=== PATIENT | female | born 1930 | race Caucasian/White ===

== ENCOUNTER 2016-10-27 01:31 | Observation (INO) ==
--- NOTE | 2016-10-27 02:17 | Emergency Department Note ---
Brice Toribio Mantricia, am scribing for, and in the presence of, Faustino Berman MD 02:05. Cullen Toribio Charles R, MD, personally performed the services described in this documentation, ascribed by Branden Narvaez in my presence, and it is both accurate and complete . Arrival - Arrival Chief Complaint: Arrhythmia/Palpitations Stated Complaint: AFIB ED Nursing Triage Note: C/C transfer from [facility] with Dx New Onset A-fib. Pt was given ASA 325mg, Lopressor 5mg, Zofran 4mg, Lovenox 40mg, 1L NS Mode of Arrival: Stretcher Limitations: No Limitations Source: Patient Time Seen by Provider: 10/27/16 01:43 - History of Present Illness HPI Narrative: Pt is an 86 y/o white female arriving to ED by EMS as a transfer from [facility] for further evaluation of new onset of Afib. Pt was given ASA, Lopressor, Zofran, Lovenox, and a liter of fluid while at [facility]. At time of exam, pt denies any chest pain but reports that she did have some chest pain earlier today. Pt's deck hand is Dr. Harden and she is not sure what cardiac problem she has that prompted her to be seen by Dr. Harden. No other complaints were reported to ED. Onset (ago): hour(s) Consistency: constant Severity: mild Allergies/Adverse Reactions: Allergies Allergy/AdvReac Type Severity Reaction Status Date / Time No Known Allergies Allergy Unverified 10/27/16 01:47 Review of System - Review of System 12 point system: reviewed and no additional remarkable complaints except as stated - Review of System Constitutional: Absent: chills, diaphoresis, fever Eyes: Absent: pain Respiratory: Absent: cough Cardiovascular: Present: chest pain, palpitations. Absent: dyspnea on exertion Gastrointestinal: Absent: abdominal pain, nausea, vomiting Medical,Surgical,& Family Hx - Medical History Cardio: History of: Hypertension, Cardiovascular Problems (Bradycardia) Psychological: History of: Depression Neurology: History of: Cerebrovascular Accident Endocrine: History of: Dyslipidemia, Thyroid Disorder (Hypothyroid) Musculoskeletal: History of: Musculoskeletal Problems (Osteoarthritis) - Surgical History Reproductive Surgeries: Surgical HX of;: Hysterectomy - Social History Smoking Status: Former smoker Frequency of Alcohol Use: None Type of Drug Use: None Exam Vital Signs: Vital Signs Temperature 97.9 F 10/27/16 01:32 Pulse Rate 59 L 10/27/16 01:32 Respiratory Rate 16 10/27/16 01:45 Blood Pressure 131/84 10/27/16 01:32 O2 Sat by Pulse Oximetry 96 10/27/16 01:32 - General General appearance: alert, in no apparent distress - Head Head exam: Present: atraumatic, normocephalic, normal inspection - Eye Eye exam: Present: normal appearance, PERRL, EOMI - ENT ENT exam: Present: normal exam, normal oropharynx, mucous membranes moist, TM's normal bilaterally, normal external ear exam - Neck Neck exam: Present: normal inspection, full ROM, trachea midline. Absent: tenderness - Chest Chest inspection: Present: normal inspection, symmetric chest wall rise. Absent : tenderness - Respiratory Respiratory exam: Present: rhonchi - Cardiovascular Cardiovascular exam: Present: normal rhythm, bradycardia, normal heart sounds - Abdominal Exam Abdominal exam: Present: soft, normal bowel sounds. Absent: distention, tenderness, guarding, rebound - Extremities Exam Extremities exam: Present: full ROM, normal capillary refill, other (+1 LE edema bilat). Absent: tenderness - Back Exam Back exam: Present: normal inspection, full ROM. Absent: tenderness - Neurological Exam Neurological exam: Present: alert, oriented X3, CN II-XII intact, normal gait, reflexes normal - Psychiatric Psychiatric exam: Present: normal affect, normal mood - Skin Skin exam: Present: warm, dry, intact, normal color Course Course Narrative: On admission patient has no chest pain she is actually bradycardic in normal sinus rhythm has no complaints will place patient in the hospital observation hospitalist - Consultations Consultation #1: Hospitalist will admit patient Time: 02:16 Results - Labs Labs: All results reviewed from previous facility Disposition Clinical Impression: Palpitations, New onset a-fib, Atypical chest pain Case discussed with: patient Disposition: Still a Patient Condition: Stable Time of Disposition: 02:16
--- NOTE | 2016-10-27 02:38 | Hospitalist History & Physical ---
Assessment and Plan (1) Atypical chest pain Status: Acute (2) New onset a-fib Status: Acute (3) Palpitations Status: Acute Assessment and plan: Patient is currently in this bradycardia rhythm. At the outside facility copies of the EKG are consistent with A. fib with RVR. Patient will be admitted to telemetry we will draw serial cardiac enzymes check a fasting lipid profile at the outside facility patient received Lovenox aspirin and Lopressor. Will get cardiology to see her I do not know if the A. fib is new or old. She normally sees Dr. Lindsay Hicks. History of Present Illness Chief complaint: Chest pain History of present illness: Ms. Hunter is a 86 year old female with past medical history significant for stroke with residual left hemiparesis, coronary artery disease and reflux who is in her normal state of health until tonight. [facility] She started developing chest pain that radiated up to her neck. She denies shortness of breath and diaphoresis she was taken up to the [facility] for further evaluation. Patient found to be in A. fib rhythm with a heart rate mildly above 100. Patient received Lovenox and labetalol at that facility and currently has a rate in the 50s. Patient was transferred to our hospital for further evaluation I was consulted to admit her. Allergies Allergy/AdvReac Type Severity Reaction Status Date / Time No Known Allergies Allergy Unverified 10/27/16 01:47 Medical,Surgical,& Family Hx - Medical History Cardio: History of: Hypertension, Cardiovascular Problems (Bradycardia) Psychological: History of: Depression Neurology: History of: Cerebrovascular Accident Endocrine: History of: Dyslipidemia, Thyroid Disorder (Hypothyroid) Musculoskeletal: History of: Musculoskeletal Problems (Osteoarthritis) - Surgical History Reproductive Surgeries: Surgical HX of;: Hysterectomy - Family History Family History: Reports;: Family Heart Disease - Social History Smoking Status: Former smoker Frequency of Alcohol Use: None Type of Drug Use: None 12 point system: reviewed and no additional remarkable complaints except as stated Exam - Constitutional Vitals: Period Temp Pulse Resp BP Sys/Steinberg Pulse Ox Last 24 Hr 97.9 F-97.9 F 59-59 16-18 131-131/84-84 96 - General General appearance: alert, in no apparent distress - Head Head exam: Present: atraumatic, normocephalic, normal inspection - Eye Eye exam: Present: normal appearance, PERRL, EOMI - ENT ENT exam: Present: normal exam, normal oropharynx, mucous membranes moist, TM's normal bilaterally, normal external ear exam - Neck Neck exam: Present: normal inspection, full ROM, trachea midline. Absent: tenderness - Chest Chest inspection: Present: normal inspection, symmetric chest wall rise. Absent : tenderness - Respiratory Respiratory exam: Present: Grossly clear - Cardiovascular Cardiovascular exam: Present: normal rhythm, bradycardia, normal heart sounds - Abdominal Exam Abdominal exam: Present: soft, normal bowel sounds. Absent: distention, tenderness, guarding, rebound - Extremities Exam Extremities exam: Present: full ROM, normal capillary refill, other (+1 LE edema bilat). Patient with significant hemiparesis on the left - Back Exam Back exam: Present: normal inspection, full ROM. Absent: tenderness - Neurological Exam Neurological exam: Present: alert, oriented X3, CN II-XII intact, normal gait, reflexes normal - Psychiatric Psychiatric exam: Present: normal affect, normal mood - Skin Skin exam: Present: warm, dry, intact, normal color Results - Labs Labs: Labs from outside facility displayed white count 9.7 hemoglobin 12.7 hematocrit 38.6 platelets 478 BUN 23 calcium 10.0 creatinine 0.89 CO2 23 glucose 138 potassium 3.9 sodium 139 chloride 104 CK-MB 1.2 myoglobin 27 troponin less than 0.03
[2016-10-27] MEDS ORDERED: ONDANSETRON 4 MG/2 ML VIAL IV PRN (02:44)
[2016-10-27 05:25] LABS: Basophils % 0.4 % (0.0-0.8); Eosinophils # 0.2 10*3/uL (0.0-0.87); Eosinophils % 2.5 % (0.00-10.9); Hematocrit 32.4 VOL% (35.7-47.0); Hemoglobin 11.2 GM/DL (12.0-16.0); Immature Granulocytes % 0.3 %; Immature Granulocytes Absolute 0.02 #; Mean Corpuscular HGB Conc 34.6 GM/DL (32-36); Mean Corpuscular Hemoglobin 32 PG (27-34); Mean Corpuscular Volume 92.6 FL (87-102); Mean Platelet Volume 9.6 FL (9.6-12.0); Monocytes # 0.7 10*3/uL (0.11-0.8); Monocytes % 9.6 % (1.7-12.7); Neutrophils # 2.6 10*3/uL (1.4-7.4); Neutrophils % 34.2 % (38.7-73.9); Platelet Count 414 T/CUMM (130-400); Red Cell Distribution Width 13.5 % (9.3-17.3); White Blood Count 7.5 T/CUMM (4-12)
[2016-10-27 05:47] LABS: Albumin 3.1 G/DL (3.4-5.0); Bilirubin,Total 0.5 MG/DL (0.2-1.0); Calcium 8.6 MG/DL (8.5-10.1); Osmolality,Calculated 287.1 MOS/KG (273-304); Risk Ratio 6.76; Total Protein 6.6 G/DL (6.4-8.3); VLDL CHOLESTEROL 55.6 MG/DL
[2016-10-27 05:49] LABS: Troponin I Only 0.144 NG/ML (0.00-0.045)
[2016-10-27 06:13] LABS: Band Neutrophils 3 % (0-10); Eosinophils 2 % (0-10); Hypochromasia 2+; Lymphocytes 52 % (20-55); Platelet Estimate Increased; Segmented Neutrophils 33 % (50-85); Total Cells Counted 100
--- NOTE | 2016-10-27 07:55 | EKG Report ---
Stationary ECG Study [facility] ER Test Date: 10/27/2016 1:45:08 AM Pat Name: KATHRYN HAYWARD Department: Room: 274 Gender: F Pullman Conductor: : 1930 Requested by: Faustino Pantoja Order Number: [id number] Reading MD: MARYJANE ANDREA Intervals [place] Rate: 53 P: 88 KS: 152 QRS: -22 QRSD: 90 T: 52 QT: 446 QTc: 430 Interpretive Statements SINUS BRADYCARDIA BORDERLINE LEFT AXIS DEVIATION Electronically Signed On 10-30-16 18:29:54 CDT by VALERIE BRIONES Electronically Signed On 10-31-16 14:41:29 CDT by MARYJANE ANDREA [email or web address]
--- NOTE | 2016-10-27 07:58 | Cardiology Consult Note ---
<Kianna Carr - Last Filed: 10/27/16 08:57> Assessment and Plan - Time spent with patient Time spent with patient: Greater than 30 minutes (1) New onset a-fib Status: Acute Assessment and plan: See plan of care listed below. Current Visit: Yes (2) Elevated troponin Status: Acute Assessment and plan: See plan of care listed below. Current Visit: Yes (3) Atypical chest pain Status: Resolved Assessment and plan: See plan of care listed below. Current Visit: Yes (4) History of coronary artery disease Status: Chronic Assessment and plan: See plan of care listed below. Current Visit: Yes (5) Hypertension Status: Chronic Assessment and plan: See plan of care listed below. Current Visit: Yes (6) Dyslipidemia Status: Chronic Assessment and plan: See plan of care listed below. Current Visit: Yes (7) History of stroke Status: Chronic Assessment and plan: See plan of care listed below. Current Visit: Yes (8) Debility Status: Chronic Assessment and plan: See plan of care listed below. Current Visit: Yes (9) Obesity Status: Chronic Assessment and plan: See plan of care listed below. Current Visit: Yes Qualifiers: Obesity classification: adult class 1 (BMI 30 ? 34.9) (10) Former smoker Status: Chronic Assessment and plan: See plan of care listed below. Current Visit: Yes (11) GERD (gastroesophageal reflux disease) Status: Chronic Assessment and plan: See plan of care listed below. Current Visit: Yes (12) Snoring Status: Chronic Assessment and plan: See plan of care listed below. Current Visit: Yes (13) Daytime sleepiness Status: Chronic Assessment and plan: See plan of care listed below. Current Visit: Yes History of Present Illness - Data of Consult Patient: known to practice within the last 3 years Consult date: 10/27/16 Requesting Physician: Shon Torres - Consult Narrative Reason for consult: NEW ONSET AFIB History of present illness: RETURNED MATERIALS INSPECTOR: DR. ANDUJAR Ms. Hunter is a 86 year old female with known history of coronary artery disease , routinely followed by Dr. Andujar. She is a assisted resident. Patient has cardiac risk factors significant for hypertension, dyslipidemia, obesity, former smoker (quit in 2000), sedentary lifestyle, advanced age, known history of CAD and family history of coronary artery disease (mother age 92, brother age 76, brother age 80). Patient has past medical history of stroke with left hemiplegia, depression and GERD. Patient does have history of coronary artery disease and reports that she underwent heart catheterization at [facility] between the years of 2004 in 2007. Per her report, she received stent placement at that time. Report is unavailable at this time. I will request this from [facility]. She has not had heart catheterization or stress testing since that time. Most recent echocardiogram 2014 revealed preserved ejection fraction of 60%. Patient was last seen by Dr. Andujar in cardiology clinic June 2016. Patient was in her usual state of health until yesterday evening around 10 PM when she began experiencing midsternal chest pain. She describes this as a tightness that radiated to her head and stomach. Not associated with shortness of breath, nausea or diaphoresis. She denies heart racing, palpitations, dizziness and syncope. Patient reports that she has been having problems with her reflux lately. Last week she was experiencing significant nausea and vomiting after meals. Nexium was reinitiated at that time. This has greatly improved her reflux symptoms and she has not vomited or became nauseated post meals over the past week. She reports that her chest discomfort lasted approximately 2 hours and was relieved after receiving Mylanta at the assisted. However, she was tachycardic and the assisted staff felt that she needed to be further evaluated in the emergency department. Upon arrival to [facility] she was noted to be in atrial fibrillation with rapid ventricular response. At that facility, she received Lovenox, aspirin and Lopressor. She has since converted to a sinus bradycardia, heart rates ranging in the 40s and 50s. Patient was transferred to our facility for further evaluation. Cardiology has been consulted to further assist in her new onset atrial fibrillation. Of note, patient is a assisted resident. She is wheelchair-bound and unable to walk due to previous stroke. She is very sedentary. Unable to determine change in exercise tolerance as well as dyspnea on exertion. She denies contraindications to anticoagulation. Denies GI bleeding, melena and frequent falls. Denies fever, chills, cough, lower extremity edema, orthopnea and PND. Reports no changes in her breathing pattern. She has several symptoms concerning for sleep apnea. She confirms that she snores nightly. Has significant daytime sleepiness and requires multiple naps during the day. She is also obese with a BMI of 33.6. I will consult Dr. Costello to further evaluate Patient was seen and examined on the telemetry unit. She is currently without complaints of chest pain, heaviness and tightness. She reports this is not recurred since receiving Mylanta at the assisted. She is now in sinus bradycardia with heart rates in the 50s. Troponin at [facility] facility was negative. Troponin at our facility was trivial at 0.144. We will continue to cycle cardiac biomarkers. EKG does reveal nonspecific ST and T-wave abnormality. Will panel reviewed. Triglycerides 278 LDL 118. High intensity statin initiated. Patient is currently in sinus bradycardia. Will avoid beta blockade at this time. Will attempt to initiate this when able. Patient's chest pain is atypical and does not seem to be cardiac in nature. Trivial troponin of 0.144. This is most likely secondary to patient's rapid ventricular response. EKG does not reveal anything concerning for ischemia. We will continue to cycle cardiac biomarkers and EKG. Will keep patient n.p.o. and further discuss with Dr. Jackman regarding the need for further cardiac workup as she does have several risk factors. Continue aspirin. Further recommendations to follow. ASSESSMENT/PLAN 1. NEW ONSET ATRIAL FIBRILLATION - She has now converted to sinus bradycardia. Chads vas score 7. She received therapeutic dose of Lovenox at [facility]. Patient is extremely high risk for stroke and needs to be on anticoagulation. I will further discuss with Dr. Jackman and await her recommendations. 2. ATYPICAL CHEST PAIN - Patient chest pain is atypical in nature and does not seem to be cardiac in nature. Trivial troponin of 0.144. This is most likely secondary to patient's rapid ventricular response. EKG does not reveal any concerning for ischemia. We will continue to cycle cardiac biomarkers and EKG. Suspect that this is GI in nature. Continue PPI. Will keep patient n.p.o. and further discuss with Dr. Jackman regarding the need for further cardiac workup as she does have several risk factors. Continue aspirin. Further recommendations to follow. 3. ELEVATED TROPONIN - First set of cardiac biomarkers was negative at [facility] facility. Second set at our facility was trivial at 0.144. Most likely secondary to patient's rapid ventricular response of atrial fibrillation. Will continue to cycle cardiac biomarkers and EKGs. I will continue to keep patient n.p.o. and further discuss with Dr. Jackman and await her additional recommendations. 4. HISTORY OF CAD - History of CAD with stent placement at [facility]. These records are currently unavailable. I will request these. Continue aspirin. Lipid-lowering agent initiated. Will initiate beta-blockade when heart rate will allow. 5. HISTORY OF HYPERTENSION - Well controlled. Will monitor blood pressure throughout hospitalization and adjust medications as needed. Avoiding beta blockade due to bradycardia. 6. DYSLIPIDEMIA - Lipid panel reviewed. High intensity statin initiated for further risk stratification. Lipid panel should be repeated in 1 month to 6 weeks. 7. HISTORY OF STROKE WITH LEFT HEMIPLEGIA - History of stroke in 2000. Continue aspirin. 8. DEBILITY, [facility] RESIDENT - Chronic. Wheelchair-bound. 9. OBESITY - I have encouraged weight loss per dietary restriction. 10. FORMER SMOKER - Reports that she quit smoking in 2000. 11. HISTORY OF GERD - Continue PPI. 12. SUSPECTED SLEEP APNEA - Patient has several symptoms concerning for sleep apnea including snoring, daytime sleepiness and obesity. I will consult Dr. Costello to further evaluate as this could be contributing to her new onset atrial fibrillation. CC: Gary Jose MD - Home Medications and Allergies Allergies/Adverse Reactions: Allergies Allergy/AdvReac Type Severity Reaction Status Date / Time No Known Allergies Allergy Unverified 10/27/16 01:47 - Constitutional Constitutional: Present: as per HPI. Absent: chills, fatigue, fever(s), lethargy, malaise - Cardiovascular Cardiovascular: Present: as per HPI, chest pain at rest. Absent: claudication, diaphoresis, dyspnea, edema, radiating jaw, neck or arm pain, lightheadedness, orthopnea, palpitations, PND - Gastrointestinal Gastrointestinal: Present: as per HPI, heartburn, nausea, vomiting. Absent: abdominal pain, coffee ground emesis, diarrhea, hematemesis, hematochezia, loose stools - Neurological Neurological: Present: as per HPI. Absent: behavioral changes, confusion, dizziness - Hematologic/Lymphatic Hematologic/Lymphatic: Absent: easy bleeding, easy bruising Medical,Surgical,& Family Hx - Medical History Cardio: History of: CAD, Hypertension Psychological: History of: Depression Neurology: History of: Cerebrovascular Accident Endocrine: History of: Dyslipidemia, Thyroid Disorder (Hypothyroid) Gastrointestinal: History of: GERD Musculoskeletal: History of: Musculoskeletal Problems (Osteoarthritis) - Surgical History Cardiac Surgeries: Sugical HX of: Cardiac Catheterization ([facility] ) Thoracic Surgeries: Patient denies;: Organ Transplant Neurologic Surgeries: Patient denies: Neurologic Surgery Abdominal Surgeries: Surgical HX of: Hernia Repair Reproductive Surgeries: Surgical HX of;: Hysterectomy Patient denies;: Genitourinary Surgery - Family History Family History: Reports;: Family Heart Disease - Social History Smoking Status: Former smoker Frequency of Alcohol Use: None Type of Drug Use: None Marital Status: Single Lives With:: [facility] Functional capacity: wheelchair bound Physical Examination Vital Signs Temp Pulse Resp BP Pulse Ox 97.9 F 59 L 18 131/84 96 10/27/16 01:32 10/27/16 01:32 10/27/16 01:32 10/27/16 01:32 10/27/16 01:32 Exam: General: Appears well with no apparent distress. Pleasant and cooperative. Appears comfortable. Obese HEENT: PERRL, normocephalic, atraumatic. Mucous membranes moist. No jaundice noted. Conjunctiva moist and clear, sclerae anicteric Neck: No JVD/HJR, no thyromegaly or lymphadenopathy noted. No carotid bruit appreciated Cardiac: Regular rate and rhythm. No murmur rub or gallop. Lungs: Clear to auscultation without accessory muscle use to assist the respiratory pattern. Oxygen via nasal cannula. Abdomen: Soft, bowel sounds normoactive. Nontender and nondistended. Obese. Extremities: No clubbing, cyanosis noted. No edema noted. Upper extremity pulses 2+. Lower extremity pulses 2+. Capillary refill less than 3 seconds. Skin: No unusual lesions or rashes. No skin breakdown appreciated. Neuro: Awake, alert and oriented 3. Left-sided hemiplegia. No essential tremor is appreciated. Result/EKG - Labs CBC & BMP: 10/27/16 05:02 10/27/16 05:02 Lab Results: I have reviewed the past 24 hour labs Labs: Laboratory Results - last 24 hr 10/27/16 10/27/16 10/27/16 05:02 05:02 05:02 WBC 7.5 RBC 3.50 L Hgb 11.2 L Hct 32.4 L MCV 92.6 MCH 32 MCHC 34.6 RDW 13.5 Plt Count 414 H MPV 9.6 Neut % (Auto) 34.2 L Lymph % (Auto) 53.0 [place] % (Auto) 9.6 Eos % (Auto) 2.5 Baso % (Auto) 0.4 Neut # (Auto) 2.6 Lymph # (Auto) 4.0 [place] # (Auto) 0.7 Eos # (Auto) 0.2 Baso # (Auto) 0.0 Total Counted 100 Immature Gran % 0.3 Nucleated RBC % 0.0 Immature Gran # 0.02 Segmented Neutrophils 33 L Band Neutrophils 3 Lymphocytes 52 Monocytes 10 Eosinophils 2 Nucleated RBCs # 0.00 Platelet Estimate Increased Immature Plt Fraction 0.0 Hypochromasia 2+ Sodium 142 Potassium 4.0 Chloride 107 Carbon Dioxide 29 Anion Gap 10.0 BUN 22 H Creatinine 1.00 GFR Calculation 58 BUN/Creatinine Ratio 22.00 H Glucose 132 H Calculated Osmolality 287.1 Calcium 8.6 Total Bilirubin 0.50 AST 18 ALT 14 Alkaline Phosphatase 106 Total Creatine Kinase 50 CK-MB (CK-2) 1.6 Troponin I 0.144 H Total Protein 6.6 Albumin 3.1 L Globulin 3.5 Albumin/Globulin Ratio 0.8 L Triglycerides 278 H Cholesterol 196 LDL Cholesterol 118.0 VLDL Cholesterol 55.6 HDL Cholesterol 29 L Heart Disease Risk Ratio 6.76 <Kimmie Jackman - Last Filed: 10/27/16 16:07> History of Present Illness - Consult Narrative History of present illness: 13. Atrial fibrillation-she is going to be anticoagulated and we will need to watch her hemoglobin. She is currently in sinus rhythm. I have personally interviewed and examined the patient, reviewed the chart and discussed medical decision-making with practitioner Bruno. I have read this note and agree with the documentation herein. I spoke with the patient's daughter regarding her condition. I believe her elevated troponin is likely related to her rapid ventricular response. The patient is essentially bedridden due to her hemiparesis. The daughter and I discussed pursuing medical management and not proceeding with cardiac catheterization given her generalized debility. We also discussed the nature of atrial fibrillation and recurrence, currently with her resting bradycardia we cannot maintain her on any patricia blocking agents. CC: Gary Jose MD Physical Examination Vital Signs Temp Pulse Resp BP Pulse Ox 97.9 F 59 L 18 131/84 96 10/27/16 01:32 10/27/16 01:32 10/27/16 01:32 10/27/16 01:32 10/27/16 01:32 Result/EKG - Labs CBC & BMP: 10/27/16 05:02 10/27/16 05:02 Labs: Laboratory Results - last 24 hr 10/27/16 10/27/16 10/27/16 05:02 05:02 05:02 WBC 7.5 RBC 3.50 L Hgb 11.2 L Hct 32.4 L MCV 92.6 MCH 32 MCHC 34.6 RDW 13.5 Plt Count 414 H MPV 9.6 Neut % (Auto) 34.2 L Lymph % (Auto) 53.0 [place] % (Auto) 9.6 Eos % (Auto) 2.5 Baso % (Auto) 0.4 Neut # (Auto) 2.6 Lymph # (Auto) 4.0 [place] # (Auto) 0.7 Eos # (Auto) 0.2 Baso # (Auto) 0.0 Total Counted 100 Immature Gran % 0.3 Nucleated RBC % 0.0 Immature Gran # 0.02 Segmented Neutrophils 33 L Band Neutrophils 3 Lymphocytes 52 Monocytes 10 Eosinophils 2 Nucleated RBCs # 0.00 Platelet Estimate Increased Immature Plt Fraction 0.0 Hypochromasia 2+ D-Dimer, Quantitative Sodium 142 Potassium 4.0 Chloride 107 Carbon Dioxide 29 Anion Gap 10.0 BUN 22 H Creatinine 1.00 GFR Calculation 58 BUN/Creatinine Ratio 22.00 H Glucose 132 H Hemoglobin A1c Calculated Osmolality 287.1 Calcium 8.6 Total Bilirubin 0.50 AST 18 ALT 14 Alkaline Phosphatase 106 Total Creatine Kinase 50 CK-MB (CK-2) 1.6 Troponin I 0.144 H Total Protein 6.6 Albumin 3.1 L Globulin 3.5 Albumin/Globulin Ratio 0.8 L Triglycerides 278 H Cholesterol 196 LDL Cholesterol 118.0 VLDL Cholesterol 55.6 HDL Cholesterol 29 L Heart Disease Risk Ratio 6.76 10/27/16 10/27/16 10/27/16 08:31 08:31 10:57 WBC RBC Hgb Hct MCV MCH MCHC RDW Plt Count MPV Neut % (Auto) Lymph % (Auto) [place] % (Auto) Eos % (Auto) Baso % (Auto) Neut # (Auto) Lymph # (Auto) [place] # (Auto) Eos # (Auto) Baso # (Auto) Total Counted Immature Gran % Nucleated RBC % Immature Gran # Segmented Neutrophils Band Neutrophils Lymphocytes Monocytes Eosinophils Nucleated RBCs # Platelet Estimate Immature Plt Fraction Hypochromasia D-Dimer, Quantitative <= 0.5 Sodium Potassium Chloride Carbon Dioxide Anion Gap BUN Creatinine GFR Calculation BUN/Creatinine Ratio Glucose Hemoglobin A1c 6.9 H Calculated Osmolality Calcium Total Bilirubin AST ALT Alkaline Phosphatase Total Creatine Kinase 48 CK-MB (CK-2) 1.9 Troponin I 0.150 H Total Protein Albumin Globulin Albumin/Globulin Ratio Triglycerides Cholesterol LDL Cholesterol VLDL Cholesterol HDL Cholesterol Heart Disease Risk Ratio 10/27/16 14:31 WBC RBC Hgb Hct MCV MCH MCHC RDW Plt Count MPV Neut % (Auto) Lymph % (Auto) [place] % (Auto) Eos % (Auto) Baso % (Auto) Neut # (Auto) Lymph # (Auto) [place] # (Auto) Eos # (Auto) Baso # (Auto) Total Counted Immature Gran % Nucleated RBC % Immature Gran # Segmented Neutrophils Band Neutrophils Lymphocytes Monocytes Eosinophils Nucleated RBCs # Platelet Estimate Immature Plt Fraction Hypochromasia D-Dimer, Quantitative Sodium Potassium Chloride Carbon Dioxide Anion Gap BUN Creatinine GFR Calculation BUN/Creatinine Ratio Glucose Hemoglobin A1c Calculated Osmolality Calcium Total Bilirubin AST ALT Alkaline Phosphatase Total Creatine Kinase 50 CK-MB (CK-2) 2.0 Troponin I 0.097 H D Total Protein Albumin Globulin Albumin/Globulin Ratio Triglycerides Cholesterol LDL Cholesterol VLDL Cholesterol HDL Cholesterol Heart Disease Risk Ratio
[2016-10-27] MEDS: ASPIRIN EC 81 MG TABLET PO SCH (08:37)
[2016-10-27] MEDS: PANTOPRAZOLE 40 MG VIAL IV SCH (08:37)
[2016-10-27] MEDS ORDERED: ENOXAPARIN 40 MG/0.4 ML SYRINGE SUBCUT SCH (09:00)
--- NOTE | 2016-10-27 09:01 | EKG Report ---
Stationary ECG Study [facility] Test Date: 10/27/2016 9:00:10 AM Pat Name: KATHRYN HAYWARD Department: Room: 274 Gender: F Posting Clerk: BEAU : [id number] Requested by: Kianna Carr Order Number: [id number] Reading MD: VALERIE BRIONES Intervals [place] Rate: 51 P: 79 VT: 165 QRS: -17 QRSD: 89 T: 164 QT: 445 QTc: 420 Interpretive Statements SINUS BRADYCARDIA LOW QRS VOLTAGE IN PRECORDIAL LEADS NONSPECIFIC T-WAVE ABNORMALITY Electronically Signed On 10-30-16 18:32:25 CDT by VALERIE BRIONES [email or web address]
--- NOTE | 2016-10-27 10:20 | XRay Report ---
XR chest 1V portable Indication: Chest pain Comparison: Chest x-ray October 26, 2016 Technique: Single frontal view of the chest. Findings: The cardiomediastinal silhouette is stable in configuration. Chronic change of the lungs without focal consolidation, pleural effusion, or pneumothorax. Visualized osseous and surrounding soft tissue structures appear grossly unchanged. IMPRESSION: Stable chest x-ray without acute cardiopulmonary process demonstrated. PROCEDURE INTERPRETED AT [facility] DEPARTMENT OF RADIOLOGY Final Report Signed by: Dr Shahid Villalta
[2016-10-27] MEDS: LISINOPRIL 5 MG TABLET PO SCH (10:34)
[2016-10-27] MEDS ORDERED: CETIRIZINE 10 MG TABLET PO PRN (10:51)
[2016-10-27] MEDS ORDERED: POLYETHYLENE GLYCOL POWDER 17 GM PACK PO PRN (10:51)
[2016-10-27] MEDS ORDERED: FLUTICASONE 50 MCG NASAL SPRAY 16 GM BOTTLE BOTH NARES PRN (10:51)
--- NOTE | 2016-10-27 11:04 | Hospitalist Progress Note ---
Assessment and Plan (1) New onset a-fib Status: Acute Assessment and plan: Currently in sinus bradycardia. Eliquis started for high chads vasc score. Current Visit: Yes (2) Atypical chest pain Status: Resolved Current Visit: Yes (3) History of coronary artery disease Status: Chronic Current Visit: Yes (4) Elevated troponin Status: Acute Assessment and plan: Cardiology consulted. Patient sees Dr. Hicks. Current Visit: Yes (5) Hypertension Status: Chronic Current Visit: Yes Qualifiers: Hypertension type: essential hypertension Qualified Code(s): I10 - Essential (primary) hypertension (6) Dyslipidemia Status: Chronic Current Visit: Yes (7) Obesity Status: Chronic Current Visit: Yes Qualifiers: Obesity classification: adult class 1 (BMI 30 ? 34.9) (8) GERD (gastroesophageal reflux disease) Status: Chronic Current Visit: Yes Hospitalist: Subjective Interval history: Patient seen and examined. No acute events overnight. Case discussed with nursing staff. Labs reviewed. The patient's daughter was at the bedside at the time of my evaluation. Cardiology nurse practitioner also in the room. The patient was transferred here for atrial fibrillation with rapid ventricular response. She responded well to beta-blockers in the outlying emergency department and was in sinus bradycardia upon arrival here. Anticoagulation was initiated with Lovenox and Eliquis has been started. The patient is in no acute distress at this time. The episode of A. fib with RVR was preceded with nausea and vomiting. The patient gives a history consistent with gastroesophageal reflux disease. Exam - Constitutional Vitals: Period Temp Pulse Resp BP Sys/Steinberg Pulse Ox Last 24 Hr 97.2 F-97.9 F 20-59 16-20 131-142/47-84 96-98 Exam: Constitutional System: No distress. No tremulousness. Head: Normocephalic, atraumatic. Ears, Nose and Throat System: No pain or tenderness. No epistaxis or discharge Eyes System: Pupils equal, round, and reactive. Extraocular muscles intact. Neck: Supple, without adenopathy, No jugular venous distention. No thyromegaly, neck mass, or prior surgery apparent. Respiratory System: Chest clear to auscultation. Cardiovascular System: Heart with regular rate and rhythm. GI System: Abdomen soft, nontender. Normo active bowel sounds present. Musculoskeletal System: limbs with no pedal edema. Full distal pulses. Severe arthritis noted Neurological System: No discernable sensory deficit. No aphasia Psychiatric System: Conversation is rational Results - Labs CBC & BMP: 10/27/16 05:02 10/27/16 05:02 Lab Results: I have reviewed the past 24 hour labs
[2016-10-27] MEDS: IPRATROPIUM 0.06% NASAL SPRAY 15 ML BOTTLE BOTH NARES SCH ×2 (14:19→21:52)
[2016-10-27] MEDS: OMEGA 3 ACID ETHYL ESTERS 1 GM CAPSULE PO SCH ×2 (14:20→21:52)
--- NOTE | 2016-10-27 14:29 | Ultrasound Report ---
US venous doppler LE BI Indication: Lower extremity edema. Comparison: None. Technique: Grayscale, spectral, and color Doppler interrogation of the bilateral lower extremity veins was performed. Augmentation and compression was performed. Findings: Grayscale, color Doppler, and pulsed Doppler evaluation of the veins of the bilateral lower extremity demonstrates no evidence of deep venous thrombosis. IMPRESSION: No evidence of deep venous thrombosis in either lower extremity. PROCEDURE INTERPRETED AT [facility] DEPARTMENT OF RADIOLOGY Final Report Signed by: Dr Shahid Villalta
[2016-10-27 15:21] LABS: Troponin I Only 0.097 NG/ML (0.00-0.045)
--- NOTE | 2016-10-27 18:31 | ECHO Report ---
Deborah Hunter Exam Date: 10/27/2016 09:51 Referring Physician: Technologist: travis Zheng ARDMS, RVT Age: 86 Ht (in): 64 Wt (lb): 196 Gender: F Exam Location: [facility] Echo Indications: Essential (primary) hypertension, Chest pain, unspecified, GERD, Dyslipidemia, CAD, Hx: CVA, Elevated troponin BP: 142 / 62 HR: 48 Rhythm: Sinus Technical Quality: Poor IMPRESSIONS Normal LV systolic function, ejection fraction 65%. Grade 1/4 diastolic dysfunction. Mild left atrial enlargement. Mild mitral, aortic, tricuspid, pulmonic regurgitation. MEASUREMENTS (Male / Female) Normal Values 2D ECHO LV Diastolic Diameter PLAX 2.7 cm 4.2 - 5.9 / 3.9 - 5.3 cm LV Systolic Diameter PLAX 1.5 cm LV Fractional Shortening PLAX 45.2 % IVS Diastolic Thickness 0.8 cm 0.6 - 1.0 / 0.6 - 0.9 cm LVPW Diastolic Thickness 0.9 cm 0.6 - 1.0 / 0.6 - 0.9 cm RV Internal Dim ED PLAX 2.3 cm Aortic Root Diameter 2.8 cm LA Systolic Diameter LX 4.5 cm 3.0 - 4.0 / 2.7 - 3.8 cm DOPPLER TR Peak Velocity 290.0 cm/s TR Peak Gradient 33.6 mmHg FINDINGS Left Ventricle Normal left ventricular cavity size. Normal left ventricular wall thickness. Left ventricular ejection fraction is estimated at 65 %. Right Ventricle The right ventricle is normal in size and function. Right Atrium The right atrium is normal in size. Left Atrium The left atrium is mildly enlarged. Mitral Valve Morphologically normal mitral valve. Mild mitral annular calcification. Trace mitral valve regurgitation. Aortic Valve No aortic valve stenosis. Trace to mild aortic valve regurgitation. Tricuspid Valve Morphologically normal tricuspid valve. No tricuspid valve stenosis. Trace to mild tricuspid valve regurgitation. Tricuspid regurgitation velocities suggest a PAP of 44 mmHg. Pulmonic Valve Pulmonic valve not well visualized. Trace pulmonary valve regurgitation. Pericardium Normal pericardium without effusion. Aorta Normal ascending aorta dimension. Kimmie Jackman MD (Electronically Signed) Final Date: 27 October 2016 18:30
[2016-10-27] MEDS ORDERED: ROSUVASTATIN 20 MG TABLET PO SCH (21:00)
[2016-10-27] MEDS ORDERED: LEVOTHYROXINE 50 MCG TABLET PO SCH (21:00)
[2016-10-27] MEDS ORDERED: LOVASTATIN 20 MG TABLET PO SCH (21:00)
[2016-10-27] MEDS: PANTOPRAZOLE 40 MG TABLET PO SCH (21:51)
[2016-10-27] MEDS: GEMFIBROZIL 600 MG TABLET PO SCH (21:51)
[2016-10-27] MEDS: APIXABAN 5 MG TABLET PO SCH (21:52)
[2016-10-27] MEDS: CARVEDILOL 3.125 MG TABLET PO SCH (22:12)
[2016-10-28 05:19] LABS: Basophils % 0.4 % (0.0-0.8); Eosinophils # 0.2 10*3/uL (0.0-0.87); Eosinophils % 2.8 % (0.00-10.9); Hematocrit 29.7 VOL% (35.7-47.0); Hemoglobin 10.2 GM/DL (12.0-16.0); Immature Granulocytes % 0.3 %; Immature Granulocytes Absolute 0.02 #; Lymphocytes # 3.5 10*3/uL (1.4-4.0); Lymphocytes % 50.2 % (21.3-54.2); Mean Corpuscular HGB Conc 34.3 GM/DL (32-36); Mean Corpuscular Hemoglobin 32 PG (27-34); Mean Corpuscular Volume 92.2 FL (87-102); Mean Platelet Volume 9.5 FL (9.6-12.0); Monocytes # 0.7 10*3/uL (0.11-0.8); Monocytes % 9.9 % (1.7-12.7); Neutrophils # 2.5 10*3/uL (1.4-7.4); Neutrophils % 36.4 % (38.7-73.9); Platelet Count 378 T/CUMM (130-400); Red Blood Count 3.22 MC/CUMM (3.8-5.5); Red Cell Distribution Width 13.5 % (9.3-17.3); White Blood Count 6.9 T/CUMM (4-12)
[2016-10-28 05:45] LABS: Calcium 8.3 MG/DL (8.5-10.1); Magnesium 2.2 MG/DL (1.8-2.4); Osmolality,Calculated 282.4 MOS/KG (273-304); Potassium 3.7 MMOL/L (3.5-5.1)
[2016-10-28 05:46] LABS: Eosinophils 3 % (0-10); Lymphocytes 45 % (20-55); Segmented Neutrophils 43 % (50-85); Total Cells Counted 100
[2016-10-28 05:47] LABS: Atypical Lymphocytes Few; Platelet Estimate Normal
--- NOTE | 2016-10-28 07:53 | EKG Report ---
Stationary ECG Study [facility] Test Date: 10/28/2016 7:52:39 AM Pat Name: KATHRYN HAYWARD Department: Room: 274 Gender: F [employer]: : 1930 Requested by: Kianna Carr Order Number: [id number] Reading MD: VALERIE BRIONES Intervals [place] Rate: 48 P: 77 [place]: 158 QRS: -4 QRSD: 88 T: 57 QT: 453 QTc: 419 Interpretive Statements SINUS BRADYCARDIA LOW QRS VOLTAGE IN PRECORDIAL LEADS NONSPECIFIC T-WAVE ABNORMALITY Electronically Signed On 10-30-16 18:41:03 CDT by VALERIE BRIONES [email or web address]
[2016-10-28] MEDS ORDERED: FUROSEMIDE 40 MG TABLET PO SCH (09:00)
[2016-10-28] MEDS ORDERED: MAGNESIUM CHLORIDE 64 MG TABLET PO SCH (09:00)
[2016-10-28] MEDS ORDERED: POTASSIUM CHLORIDE 8 MEQ CAPSULE PO SCH (09:00)
[2016-10-28] MEDS ORDERED: CITALOPRAM 20 MG TABLET PO SCH (09:00)
[2016-10-28] MEDS: PANTOPRAZOLE 40 MG TABLET PO SCH (09:11)
[2016-10-28] MEDS: OMEGA 3 ACID ETHYL ESTERS 1 GM CAPSULE PO SCH ×2 (09:11→15:45)
[2016-10-28] MEDS: APIXABAN 5 MG TABLET PO SCH (09:12)
[2016-10-28] MEDS: LISINOPRIL 5 MG TABLET PO SCH (09:12)
[2016-10-28] MEDS: CARVEDILOL 3.125 MG TABLET PO SCH (09:12)
[2016-10-28] MEDS: ASPIRIN EC 81 MG TABLET PO SCH (09:12)
[2016-10-28] MEDS: GEMFIBROZIL 600 MG TABLET PO SCH (09:12)
[2016-10-28] MEDS: PANTOPRAZOLE 40 MG VIAL IV SCH (09:19)
--- NOTE | 2016-10-28 11:27 | Cardiology Progress Note ---
<Kianna Carr - Last Filed: 10/28/16 11:04> Assessment and Plan (1) New onset a-fib Status: Acute Assessment and plan: See plan of care listed below. (2) Elevated troponin Status: Acute Assessment and plan: See plan of care listed below. (3) Atypical chest pain Status: Resolved Assessment and plan: See plan of care listed below. (4) History of coronary artery disease Status: Chronic Assessment and plan: See plan of care listed below. (5) Hypertension Status: Chronic Assessment and plan: See plan of care listed below. Qualifiers: Hypertension type: essential hypertension Qualified Code(s): I10 - Essential (primary) hypertension (6) Dyslipidemia Status: Chronic Assessment and plan: See plan of care listed below. (7) History of stroke Status: Chronic Assessment and plan: See plan of care listed below. (8) Debility Status: Chronic Assessment and plan: See plan of care listed below. (9) Obesity Status: Chronic Assessment and plan: See plan of care listed below. Qualifiers: Obesity classification: adult class 1 (BMI 30 ? 34.9) (10) Former smoker Status: Chronic Assessment and plan: See plan of care listed below. (11) GERD (gastroesophageal reflux disease) Status: Chronic Assessment and plan: See plan of care listed below. (12) Snoring Status: Chronic Assessment and plan: See plan of care listed below. (13) Daytime sleepiness Status: Chronic Assessment and plan: See plan of care listed below. (14) Sinus bradycardia Status: Acute Assessment and plan: See plan of care listed below. Cardiology - PN: Subj Interval history: DRAFTER TOPOGRAPHICAL: DR. ANDUJAR SUMMARY Ms. Hunter is a 86 year old female with known history of coronary artery disease , routinely followed by Dr. Andujar. She is a senior living resident. Patient has cardiac risk factors significant for hypertension, dyslipidemia, obesity, former smoker (quit in 2000), sedentary lifestyle, advanced age, known history of CAD and family history of coronary artery disease (mother age 92, brother age 76, brother age 80). Patient has past medical history of stroke with left hemiplegia, depression and GERD. Patient does have history of coronary artery disease and reports that she underwent heart catheterization at [facility] between the years of 2004 in 2007. Per her report, she received stent placement at that time. Report is unavailable at this time. She has not had heart catheterization or stress testing since that time. Most recent echocardiogram 2014 revealed preserved ejection fraction of 60%. Patient presented to [facility] with new onset atrial fibrillation. She converted chemically. Now in sinus bradycardia. CHADS VASC score of 7. Eliquis has been initiated for stroke prevention. OCT 28, 2016 Patient was seen and examined on the telemetry unit. She feels remarkably better. She denies chest pain, heaviness and tightness. She has had no recurrent atrial fibrillation. Currently in normal sinus rhythm with heart rates in the 50s. Coreg has been discontinued due to bradycardia. Vital signs are stable. Labs been reviewed. At this point, patient is stable for discharge home from a cardiac standpoint. She has been instructed to obtain a 30 day event monitor from [facility] [place] [facility]. Daughter is actually on her way now to pick this event monitor. She will then follow-up with Dr. Andujar. At that time she will receive the results of her 30 day event monitor. She will also need CBC at that visit. Patient has been instructed to return her event monitor to [facility] in 30 days. ASSESSMENT/PLAN 1. NEW ONSET ATRIAL FIBRILLATION - She has now converted to sinus bradycardia. Chads vas score 7. Eliquis has been initiated for stroke prevention. Unable to initiate beta-blockade or antiarrhythmics due to bradycardia. Patient is stable for discharge home from a cardiac standpoint. She will be discharged home with 30 day event monitor and follow with Dr. Andujar at the [facility] clinic. 2. ATYPICAL CHEST PAIN - Resolved. This is not ACS. Secondary to her rapid ventricular response. 3. ELEVATED TROPONIN - No significant rise and fall. Secondary to her rapid ventricular response. 4. HISTORY OF CAD - History of CAD with stent placement at [facility]. Continue aspirin. Lipid-lowering agent initiated. Unable to tolerate beta- blockade at this time due to bradycardia. 5. HISTORY OF HYPERTENSION - Well controlled. Will monitor blood pressure throughout hospitalization and adjust medications as needed. Avoiding beta blockade due to bradycardia. 6. DYSLIPIDEMIA - Lipid panel reviewed. High intensity statin initiated for further risk stratification. Lipid panel should be repeated in 1 month to 6 weeks. 7. HISTORY OF STROKE WITH LEFT HEMIPLEGIA - History of stroke in 2000. Continue aspirin and Eliquis. 8. DEBILITY, ASSISTED RESIDENT - Chronic. Wheelchair-bound. 9. OBESITY - I have encouraged weight loss per dietary restriction. 10. FORMER SMOKER - Reports that she quit smoking in 2000. 11. HISTORY OF GERD - Continue PPI. 12. SUSPECTED SLEEP APNEA - Dr. Costello has been consulted. Exam (Progress Note) - Constitutional Vitals: Period Temp Pulse Resp BP Sys/Steinberg Pulse Ox Last 24 Hr 96.0 F-98.9 F 46-56 12-20 90-139/38-61 92-100 Exam: General: Appears well with no apparent distress. Pleasant and cooperative. Appears comfortable. Obese HEENT: PERRL, normocephalic, atraumatic. Mucous membranes moist. No jaundice noted. Conjunctiva moist and clear, sclerae anicteric Neck: No JVD/HJR, no thyromegaly or lymphadenopathy noted. No carotid bruit appreciated Cardiac: Regular rate and rhythm. No murmur rub or gallop. Lungs: Clear to auscultation without accessory muscle use to assist the respiratory pattern. Oxygen via nasal cannula. Abdomen: Soft, bowel sounds normoactive. Nontender and nondistended. Obese. Extremities: No clubbing, cyanosis noted. No edema noted. Upper extremity pulses 2+. Lower extremity pulses 2+. Capillary refill less than 3 seconds. Skin: No unusual lesions or rashes. No skin breakdown appreciated. Neuro: Awake, alert and oriented 3. Left-sided hemiplegia. No essential tremor is appreciated. Result/EKG - Labs CBC & BMP: 10/28/16 05:01 10/28/16 05:01 Lab Results: I have reviewed the past 24 hour labs Labs: Laboratory Results - last 24 hr 10/27/16 10/27/16 10/28/16 10:57 14:31 05:01 WBC 6.9 RBC 3.22 L Hgb 10.2 L Hct 29.7 L MCV 92.2 MCH 32 MCHC 34.3 RDW 13.5 Plt Count 378 MPV 9.5 L Neut % (Auto) 36.4 L Lymph % (Auto) 50.2 [place] % (Auto) 9.9 Eos % (Auto) 2.8 Baso % (Auto) 0.4 Neut # (Auto) 2.5 Lymph # (Auto) 3.5 [place] # (Auto) 0.7 Eos # (Auto) 0.2 Baso # (Auto) 0.0 Total Counted 100 Immature Gran % 0.3 Nucleated RBC % 0.0 Immature Gran # 0.02 Segmented Neutrophils 43 L Lymphocytes 45 Monocytes 9 Eosinophils 3 Nucleated RBCs # 0.00 Atypical Lymphocytes Few Platelet Estimate Normal Immature Plt Fraction 0.0 Pappenheimer Bodies Area Director D-Dimer, Quantitative <= 0.5 Sodium Potassium Chloride Carbon Dioxide Anion Gap BUN Creatinine GFR Calculation BUN/Creatinine Ratio Glucose Calculated Osmolality Calcium Magnesium Total Creatine Kinase 50 CK-MB (CK-2) 2.0 Troponin I 0.097 H D 10/28/16 05:01 WBC RBC Hgb Hct MCV MCH MCHC RDW Plt Count MPV Neut % (Auto) Lymph % (Auto) [place] % (Auto) Eos % (Auto) Baso % (Auto) Neut # (Auto) Lymph # (Auto) [place] # (Auto) Eos # (Auto) Baso # (Auto) Total Counted Immature Gran % Nucleated RBC % Immature Gran # Segmented Neutrophils Lymphocytes Monocytes Eosinophils Nucleated RBCs # Atypical Lymphocytes Platelet Estimate Immature Plt Fraction Pappenheimer Bodies D-Dimer, Quantitative Sodium 140 Potassium 3.7 Chloride 107 Carbon Dioxide 26 Anion Gap 10.7 BUN 20 H Creatinine 1.10 H GFR Calculation 51 BUN/Creatinine Ratio 18.00 Glucose 122 H Calculated Osmolality 282.4 Calcium 8.3 L Magnesium 2.2 Total Creatine Kinase CK-MB (CK-2) Troponin I Specialty Discharge - Follow Up or Referrals Follow up with: Lindsay Andujar DO [Physician] - 1 Month (With CBC.) <Kimmie Jackman - Last Filed: 10/28/16 16:52> Cardiology - PN: Subj Interval history: I have personally interviewed and examined the patient, reviewed the chart and discussed medical decision-making with practitioner Bruno. I have read this note and agree with the documentation herein. I also discussed this case with Dr. Andujar. Exam (Progress Note) - Constitutional Vitals: Period Temp Pulse Resp BP Sys/Steinberg Pulse Ox Last 24 Hr 96.8 F-98.3 F 46-55 12-18 90-140/38-70 92-95 Result/EKG - Labs CBC & BMP: 10/28/16 05:01 10/28/16 05:01 Labs: Laboratory Results - last 24 hr 10/28/16 10/28/16 05:01 05:01 WBC 6.9 RBC 3.22 L Hgb 10.2 L Hct 29.7 L MCV 92.2 MCH 32 MCHC 34.3 RDW 13.5 Plt Count 378 MPV 9.5 L Neut % (Auto) 36.4 L Lymph % (Auto) 50.2 [place] % (Auto) 9.9 Eos % (Auto) 2.8 Baso % (Auto) 0.4 Neut # (Auto) 2.5 Lymph # (Auto) 3.5 [place] # (Auto) 0.7 Eos # (Auto) 0.2 Baso # (Auto) 0.0 Total Counted 100 Immature Gran % 0.3 Nucleated RBC % 0.0 Immature Gran # 0.02 Segmented Neutrophils 43 L Lymphocytes 45 Monocytes 9 Eosinophils 3 Nucleated RBCs # 0.00 Atypical Lymphocytes Few Platelet Estimate Normal Immature Plt Fraction 0.0 Pappenheimer Bodies Area Director Sodium 140 Potassium 3.7 Chloride 107 Carbon Dioxide 26 Anion Gap 10.7 BUN 20 H Creatinine 1.10 H GFR Calculation 51 BUN/Creatinine Ratio 18.00 Glucose 122 H Calculated Osmolality 282.4 Calcium 8.3 L Magnesium 2.2
[2016-10-28 12:42] VITALS: BP 140/70
--- NOTE | 2016-10-28 14:05 | Discharge Summary ---
Hospital Course - Hospital Course Hospital Course: ADDENDUM: Ms. Hunter was discharged to [facility] by Attending. Spoke with Mary Ellen. She was discharged on Coreg 3.125mg orally BID. I did ask Mary Ellen to discontinue this medication starting immediately. Verbalized understanding. Specialty Discharge - Follow Up or Referrals Follow up with: Lindsay Harden DO [Physician] - 1 Month (With CBC.) Discharge Plan - Discharge Data Disposition: Disch/Xfer to [facility] Condition at Discharge: Stable Discharge Diet: diabetic diet, heart healthy Activity: increase activity as tolerated Weight Bearing at Discharge: weight bear as tolerated Driving: other (No driving expected) Contact your physician if you experience:: fever over 101, Difficulty voiding, Shortness of breath - Discharge Medications New Lisinopril [Prinivil] 5 mg PO DAILY #30 tablet Apixaban [Eliquis] 5 mg PO BID #60 tablet Continue Aspirin 81 mg PO DAILY Carvedilol 3.125 mg PO BID Cetirizine Tab [ZyrTEC Tab] 10 mg PO DAILY PRN PRN Reason: Allergy Symptoms Citalopram [CeleXA] 20 mg PO DAILY Cyanocobalamin Inj [Vitamin B12 Inj] 1,000 mcg IM Q30D Fluticasone Propionate [Fluticasone 50 mcg Nasal [place]] 1 spray BOTH NARES Q12HR PRN PRN Reason: Nasal Congestion Furosemide 40 mg PO DAILY Gemfibrozil 600 mg PO BID HYDROcodone/ACETAMIN 5-325 [[place] 5-325] 1 tablet PO Q8HR PRN PRN Reason: Pain Moderate To Severe (4-10) Levothyroxine Tab [Synthroid Tab] 50 mcg PO BEDTIME metFORMIN [Glucophage] 500 mg PO DAILY W/BREAKFAST [place]-3 Acid Ethyl Esters 1 gm PO TID Polyethylene Glycol 3350 17 gm PO DAILY PRN PRN Reason: Constipation Potassium Chloride 8 meq PO DAILY Esomeprazole Magnesium [Esomeprazole] 40 mg PO BID Ipratropium [place] 2 sprays BOTH NARES TID Magnesium Chloride [Slow Mag] 64 mg PO DAILY Promethazine Inj [Phenergan Inj] 25 mg IM Q6HR PRN PRN Reason: Nausea Discontinued Lovastatin [Lovastatin] 10 mg PO BEDTIME Sulfamethoxazole/Trimethoprim [Sulfamethox/Trimethoprim 800-160 Tab] 1 tablet PO BID Azithromycin Tab [Zithromax Tab] 250 mg PO DAILY - Follow Up or Referral Follow Up: Lindsay Harden DO [Physician] - 1 Month (With CBC.) - Forms/Instructions Instructions: Apixaban (By mouth), Atrial Fibrillation (DC) Exam - Constitutional Vitals: Period Temp Pulse Resp BP Sys/Steinberg Pulse Ox Last 24 Hr 96.8 F-98.3 F 46-55 12-18 90-140/38-70 92-95 General appearance: over weight - Head Head exam: Present: normocephalic, atraumatic - Eye Eye exam: Present: EOMI Pupils: Present: FLOR - ENT ENT exam: Present: normal exam - Respiratory Respiratory exam: Present: clear to auscultation bilaterally - Cardiovascular Cardiovascular exam: Present: regular rate and rhythm, other (Sinus control on the monitor tracings) - GI/Abdominal GI/Abdominal exam: Present: normal bowel sounds, soft - Extremities Exam Extremities exam: Present: other (Generalized weakness) - Neurological Exam Neurological exam: Present: alert, oriented X3, CN II-XII intact - Skin Skin exam: Present: normal color, warm, dry Discharge Results Labs on day of discharge: Labs from last 24 hours 10/28/16 10/28/16 05:01 05:01 WBC 6.9 RBC 3.22 L Hgb 10.2 L Hct 29.7 L MCV 92.2 MCH 32 MCHC 34.3 RDW 13.5 Plt Count 378 MPV 9.5 L Neut % (Auto) 36.4 L Lymph % (Auto) 50.2 [place] % (Auto) 9.9 Eos % (Auto) 2.8 Baso % (Auto) 0.4 Neut # (Auto) 2.5 Lymph # (Auto) 3.5 [place] # (Auto) 0.7 Eos # (Auto) 0.2 Baso # (Auto) 0.0 Total Counted 100 Immature Gran % 0.3 Nucleated RBC % 0.0 Immature Gran # 0.02 Segmented Neutrophils 43 L Lymphocytes 45 Monocytes 9 Eosinophils 3 Nucleated RBCs # 0.00 Atypical Lymphocytes Few Platelet Estimate Normal Immature Plt Fraction 0.0 Pappenheimer Bodies [employer] Manager Sodium 140 Potassium 3.7 Chloride 107 Carbon Dioxide 26 Anion Gap 10.7 BUN 20 H Creatinine 1.10 H GFR Calculation 51 BUN/Creatinine Ratio 18.00 Glucose 122 H Calculated Osmolality 282.4 Calcium 8.3 L Magnesium 2.2 DS: Provider Date of admission: 10/27/16 02:44 Primary care physician: . No PCP Attending physician on admission: Shon Torres MD Consults: 10/27/16 02:50 Consult to Physician [CONS] Routine Comment: Consulting Provider: Cardiology - [facility] When should Consulting Provider be notified: In am Person Notified: Jasiel Date Notified: 10/27/16 Time Notified: 07:40 10/27/16 09:15 Consult to Physician [CONS] Routine Comment: Suspected sleep apnea Consulting Provider: Mireya Costello 10/27/16 15:45 Consult to Sleep Center [CONS] Routine Reason for Sleep Center: Sleep Center Physician Discharging clinician: Macho Bolaños MD
[2016-10-28] MEDS: IPRATROPIUM 0.06% NASAL SPRAY 15 ML BOTTLE BOTH NARES SCH (15:44)
== END 2016-10-28 15:49 ==
LOC: EDUNIT# → EDBD → N.ED 01:31 → N.EDINP 01:31 → SUATTDRO 02:44 → N.TELES 03:37
PROVIDERS: ADMIT Internal Medicine; ATTEND Internal Medicine Infectious Disease